=== PATIENT | female | born 1955 | race Caucasian/White ===

== ENCOUNTER → 2017-02-08 | Outpatient (CLI) | payer OTHER ==
[~2017-02-08] MED LIST: CITA20TA9 PO; COLESTIPOL PO; DEXL30CA2 PO; ESCI10TA10 PO; ESOM40CA PO; GABA100C PO; HYDR-2443 PO; HYDROXYCUT PO; IBAN150T PO; IMAT400T PO; LEVO125T PO; LOPE1LIQ6 PO; LORA-445 PO; OMNIPAQUE 350 MG/ML, 100ML BOTTLE ONE; ONDA8TAB9 PO; OXYC-229 PO
== END | disposition home or self-care (01) ==
LOC: CFH 08:57
PROVIDERS: ATTEND Internal Medicine Hematology & Oncology
DX: C17.9 Malignant neoplasm of small intestine, unspecified (principal)
CPT/HCPCS: 74177; Q9967

== ENCOUNTER 2017-03-06 11:02 | Emergency (ER) | payer OTHER ==
[~2017-03-06] VITALS: Ht 170.2 cm; Wt 74.2 kg
[~2017-03-06 11:02] MED LIST changes: -OMNIPAQUE 350 MG/ML, 100ML BOTTLE ONE
[2017-03-06] MEDS ORDERED: SODIUM CHLORIDE FLUSH 10ML SYR IVF ONE (12:00)
[2017-03-06] MEDS ORDERED: CEFTRIAXONE PMX 1GM/50ML 50 ML IVPB ONE (12:00)
[2017-03-06] MEDS ORDERED: CEFTRIAXONE PMX 1GM/50ML 50 ML ONE (12:08)
[2017-03-06 12:17] LABS: BLOOD UREA NITROGEN 11 mg/dL (7-18)
[2017-03-06 14:36] VITALS: BP 128/63
[2017-03-06] MEDS ORDERED: OMNIPAQUE 350 MG/ML, 100ML BOTTLE ONE (16:51)
== END 2017-03-06 14:44 | disposition home or self-care (01) ==
LOC: ED 11:21
DX: L03.311 Cellulitis of abdominal wall (principal); Z85.9 Personal history of malignant neoplasm, unspecified
CPT/HCPCS: 36415; 74177; 80048; 82040; 83605; 85025; 87040; 96365; 99285; J0696; Q9967

== ENCOUNTER → 2017-12-23 | Outpatient (CLI) | payer OTHER ==
[~2017-12-23] MED LIST changes: +OMNIPAQUE 350 MG/ML, 100ML BOTTLE ONE; -OXYC-229 PO; +OXYC-307 PO
== END | disposition home or self-care (01) ==
LOC: CFH 09:11
PROVIDERS: ATTEND Internal Medicine Hematology & Oncology
DX: C17.9 Malignant neoplasm of small intestine, unspecified (principal); C49.4 Malignant neoplasm of connective and soft tissue of abdomen; D48.1 Neoplasm of uncertain behavior of connective and other soft tissue
CPT/HCPCS: 74177; Q9967

== ENCOUNTER → 2019-01-05 | Outpatient (CLI) | payer MEDICARE ==
[~2019-01-05] MED LIST changes: -IBAN150T PO; +IBAN150T15 PO
== END | disposition home or self-care (01) ==
LOC: CFH 08:19
PROVIDERS: ATTEND Internal Medicine Hematology & Oncology
DX: C17.9 Malignant neoplasm of small intestine, unspecified (principal); C49.4 Malignant neoplasm of connective and soft tissue of abdomen; D48.1 Neoplasm of uncertain behavior of connective and other soft tissue
CPT/HCPCS: 74177; 82565; Q9967